=== PATIENT | female | born 1945 | race Caucasian/White ===

== ENCOUNTER → 2018-02-03 12:11 | Outpatient (CLI) | payer MEDICARE, SELFPAY ==
--- NOTE | 2018-02-03 | DI.MG.S_ITS ---
UNILATERAL RIGHT DIGITAL SCREENING MAMMOGRAM 3D/2D WITH CAD POST MASTECTOMY: 02/03/2018 CLINICAL: Routine screening. Family history of breast cancer. Personal history of breast cancer. Comparison is made to exams dated: 03/02/2014 mammogram, 05/03/2011 mammogram, and 04/19/2010 mammogram - [facility]. The tissue of the right breast is heterogeneously dense. This may lower the sensitivity of mammography. Current study was also evaluated with a Computer Aided Detection (CAD) system. No significant masses, calcifications, or other findings are seen in the breast. There has been no significant interval change. IMPRESSION: NEGATIVE There is no mammographic evidence of malignancy. A 1 year screening mammogram is recommended. This exam was interpreted at Station ID: [id number]. NOTE: For mammograms, a report in lay terms will be sent to the patient. Approximately 15% of breast malignancies will not be visualized mammographically. In the management of a palpable breast mass, a negative mammogram must not discourage biopsy of a clinically suspicious lesion. Electronically Signed By: Wicho moses/yolanda:02/03/2018 16:38:02 letter sent: Normal Exam ACR BI-RADS Category 1: Negative 3341F
== END ==
PROVIDERS: Family Provider Family Medicine; PCP Family Medicine; Visit Provider Family Medicine
DX: Z12.31 Encounter for screening mammogram for malignant neoplasm of breast (principal); Z80.3 Family history of malignant neoplasm of breast; Z85.3 Personal history of malignant neoplasm of breast; M85.88 Other specified disorders of bone density and structure, other site
CPT/HCPCS: 77063; 77065; 77080

== ENCOUNTER → 2019-07-23 08:54 | Outpatient (CLI) | payer MEDICARE, SELFPAY ==
--- NOTE | 2019-07-23 | DI.MG.S_ITS ---
UNILATERAL RIGHT DIGITAL SCREENING MAMMOGRAM 3D/2D WITH CAD POST MASTECTOMY: 07/23/2019 CLINICAL: Routine screening. Personal history of left breast cancer. Family history of breast cancer. Comparison is made to exams dated: 02/03/2018 mammogram, 03/02/2014 mammogram, 05/03/2011 mammogram, 04/04/2009 mammogram, 04/19/2010 mammogram, and 02/26/2008 mammogram - [facility]. The tissue of right breast is heterogeneously dense. This may lower the sensitivity of mammography. Current study was also evaluated with a Computer Aided Detection (CAD) system. No significant masses, calcifications, or other findings are seen in the breast. There has been no significant interval change. IMPRESSION: NEGATIVE There is no mammographic evidence of malignancy. A 1 year screening mammogram is recommended. This exam was interpreted at Station ID: [id number]. NOTE: For mammograms, a report in lay terms will be sent to the patient. Approximately 15% of breast malignancies will not be visualized mammographically. In the management of a palpable breast mass, a negative mammogram must not discourage biopsy of a clinically suspicious lesion. Electronically Signed By: Obi baker/yolanda:07/23/2019 16:34:42 letter sent: Normal Exam ACR BI-RADS Category 1: Negative 3341F
== END ==
PROVIDERS: Family Provider Family Medicine; PCP Family Medicine; Visit Provider Family Medicine
DX: Z12.31 Encounter for screening mammogram for malignant neoplasm of breast (principal); Z85.3 Personal history of malignant neoplasm of breast; Z80.3 Family history of malignant neoplasm of breast
CPT/HCPCS: 77063; 77067

== ENCOUNTER 2020-04-11 06:59 | Emergency (ER) | payer MEDICARE, SELFPAY ==
[2020-04-11 07:09] VITALS: BP 172/70; PULSE 76; RESP 18; TEMP 36.6; O2SAT 99; BMI 22.6
--- NOTE | 2020-04-11 07:18 | ED.LOWEXIN ---
HPI - Extremity Injury (Lower) General Chief Complaint: Extremity Injury, Lower Stated Complaint: left knee pain since last night Time Seen by Provider: 04/11/20 07:09 Source: family Mode of arrival: Wheelchair Limitations: no limitations History of Present Illness HPI Narrative: Patient is a 74-year-old female who presents with left knee injury. He actually was seen evaluated by orthopedics last week she does not have hardly any arthritis in her knee but continues to have knee pain. She was set up for physical therapy which she is supposed to start in 2 days. Yesterday she was walking and turned and felt something slip. She has had a difficult time walking and hurts to bend her knee. She denies hearing any pop. MD complaint: knee injury Onset (ago): day(s) Related Data Home Medications Medication Instructions Recorded Confirmed Fish Oil (#FISH OIL) 1 iu PO Q DAY #0 03/03/12 MULTIVITAMIN 1 cap PO Q DAY #0 03/03/12 Previous Rx's Medication Instructions Recorded valacyclovir 500 mg PO BID #6 tab 04/17/17 Allergies Allergy/AdvReac Type Severity Reaction Status Date / Time No Known Drug Allergies Allergy Verified 04/11/20 07:40 Review of Systems Review of Systems Narrative: GENERAL: Denies chills,fever HEENT: Denies throat pain RESPIRATORY: Denies dyspnea, cough, wheezing CARDIOVASCULAR: Denies chest pain, palpitations GASTROINTESTINAL: Denies nausea, vomiting MUSCULOSKELETAL: See HPI SKIN: No rash, no laceration, no pruritus NEUROLOGIC: Denies weakness, dizziness, headache, numbness 8 point review of systems is negative except for those stated above and HPI Patient History Medical History Patient denies medical problems (Acute) Surgical History History of carpal tunnel repair History of total mastectomy S/P total abdominal hysterectomy and bilateral salpingo-oophorectomy Family History Father Prostate cancer Mother Age: 98 Hypertension Social History Smoking Status: Never smoker Smoking Status: Never smoker alcohol intake frequency: 0-2 drinks per day Substance Use Type: does not use Exam Initial Vital Signs Initial Vital Signs: Vital Signs Temperature 97.8 F 04/11/20 07:09 Pulse Rate 76 04/11/20 07:09 Respiratory Rate 18 04/11/20 07:09 Blood Pressure 172/70 H 04/11/20 07:09 Pulse Oximetry 99 04/11/20 07:09 GENERAL: Well-appearing, well-nourished and in no acute distress. CARDIOVASCULAR: peripheral pulses in tact, cap refill <2 sec RESPIRATORY: No respiratory distress, speaks in full sentences without difficulty EXTREMITIES: Normal range of motion, no clubbing or edema. Neurovascularly intact Left lower extremity: Patient is able to flex the knee on her own and extend. Knee is stable minimal swelling or effusion no erythema. She is tender posteriorly. Distal pedal pulse intact NEUROLOGICAL: Cranial nerves II through XII grossly intact. Normal gait and speech. SKIN: Warm, dry, no petechiae, no rashes or lesions. Procedures Orthopedic Splinting/Casting Injury #1: Side: left Lower Extremity Injury Location: knee Lower Extremity Immobilizer: knee immobilizer Other Orthopedic Equipment: crutches Post splinting neuro exam: intact Post splinting vascular exam: intact Placed by: Nursing Course Orders Ordered: ED Orders 04/11/20 07:17 XR knee LT 3V Stat Discontinued Medications Ketorolac Tromethamine (Toradol) 30 mg IM NOW ONE Stop: 04/11/20 07:18 Last Admin: 04/11/20 07:35 Dose: 30 mg Documented by: ARVIN Vital Signs Vital signs: Vital Signs - 8 hr 04/11/20 07:09 Temperature 97.8 F Pulse Rate 76 Respiratory Rate 18 Blood Pressure 172/70 H Pulse Oximetry 99 MDM - Extremity Injury (Lower) Imaging Data Extremity x-ray #1: Radiologist's Impression: PROCEDURE: XR KNEE LT 3V INDICATIONS: injury TECHNIQUE: 3 views of the knee were acquired. COMPARISON: None. FINDINGS: Bones: No fractures or dislocations. No suspicious bony lesions. Soft tissues: No joint effusion. No suspicious soft tissue calcifications. IMPRESSION: No trauma found. Dictated by: Blas Downey M.D. on 04/11/2020 at 7:46 Discharge Plan Departure Patient Disposition: Home Clinical Impression: Left knee sprain Qualifiers: Encounter type: initial encounter Involved ligament of knee: other ligament Qualified Code(s): S83.8X2A - Sprain of other specified parts of left knee, initial encounter Discharge Date/Time: 04/11/20 08:13 Instructions: DI for Knee Sprain Activity Restrictions/Additional Instructions: *You have been diagnosed with left knee sprain *What to do: Recommend wearing the brace well active during the day. Use crutches as needed. Elevate and ice. You may are may not be able to participate in physical therapy depending on how you feel on Saturday. You may require an outpatient MRI which Dr. Vaz may decide is necessary, however does not indicated today. *Continue to take medications as directed Ibuprofen 600 mg every 6 hours if needed for ihkt-kd-veohsxhs pain *Follow up with your primary care provider in 2-3 days, *Return to ER if you should have increasing weakness, swelling, numbness, redness or fever or any new, worsening or concerning symptoms Prescriptions: No Action Fish Oil (#FISH OIL) 1 iu PO Q DAY Qty: 0 RF: 0 MULTIVITAMIN 1 cap PO Q DAY Qty: 0 RF: 0 valacyclovir 500 MG tablet 500 mg PO BID Qty: 6 RF: 0 Referrals: Miguel Ángel Vaz MD [Physician] - Angela Rasheed DO [Primary Care Provider] -
[2020-04-11] MEDS: KETOROLAC 60 MG/2 ML VIAL 30 MG IM (07:35)
== END 2020-04-11 08:13 | disposition home or self-care (01) ==
PROVIDERS: Emergency Provider Emergency Medicine; Family Provider Family Medicine; PCP Family Medicine
DX: S83.8X2A Sprain of other specified parts of left knee, initial encounter (principal); X50.1XXA Overexertion from prolonged static or awkward postures, initial encounter; Y93.01 Activity, walking, marching and hiking
CPT/HCPCS: 73562; 96372; 99283; J1885

== ENCOUNTER 2020-04-25 08:37 | Emergency (ER) | payer MEDICARE, SELFPAY ==
[2020-04-25 08:45] VITALS: BP 176/84; PULSE 88; RESP 16; TEMP 35.9; O2SAT 98; BMI 22.6
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
[2020-04-25 09:34] VITALS: BP 143/69; PULSE 73; RESP 12; O2SAT 99
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
== END 2020-04-25 09:54 | disposition home or self-care (01) ==
PROVIDERS: Emergency Provider Emergency Medicine; Family Provider Family Medicine; PCP Family Medicine
DX: T21.22XA Burn of second degree of abdominal wall, initial encounter (principal); X10.0XXA Contact with hot drinks, initial encounter
CPT/HCPCS: 99281

== ENCOUNTER → 2020-05-02 14:26 | Outpatient (CLI) | payer MEDICARE, SELFPAY | PROVIDERS: Family Provider Family Medicine; PCP Family Medicine; Referring Provider Emergency Medicine; Visit Provider Family Medicine | DX: T21.22XA Burn of second degree of abdominal wall, initial encounter (principal) | CPT/HCPCS: 16020; 99203; 99213 ==

== ENCOUNTER → 2020-05-09 09:37 | Outpatient (CLI) | payer MEDICARE, SELFPAY | PROVIDERS: Family Provider Family Medicine; PCP Family Medicine; Referring Provider Family Medicine; Visit Provider Family Medicine | DX: T21.22XA Burn of second degree of abdominal wall, initial encounter (principal) | CPT/HCPCS: 99212; 99213 ==

== ENCOUNTER → 2020-05-26 06:53 | Outpatient (CLI) | payer MEDICARE, SELFPAY ==
[2020-05-26 08:52] LABS: Add Manual Diff / Slide Review NO; Basophils Absolute Auto 100 /uL (0-100); Basophils Percent Auto 1.2 % (0-2); Eosinophils Absolute Auto 100 /uL (0-450); Eosinophils Percent Auto 2.4 % (2-4); Hemoglobin 13.3 g/dL (12.0-16.0); Lymphocytes Absolute Auto 1700 /uL (1100-4500); Lymphocytes Percent Auto 34.6 % (25-40); Mean Corpuscular HGB Conc 33.2 % (30-36); Mean Corpuscular Hemoglobin 29.8 PG (26-34); Mean Corpuscular Volume 89.8 fL (80-100); Monocytes Absolute Auto 500 /uL (0-900); Monocytes Percent Auto 11.3 % (3-14); Neutrophils Absolute Auto 2400 /uL (1500-7000); Neutrophils Percent Auto 50.5 % (50-75); Platelet Count 312 X10^3/uL (150-400); Red Blood Cell Count 4.46 X10^6/uL (4.0-5.2); Red Cell Distribution Width 14.1 % (11.6-14.8); White Blood Cell Count 4.8 X10^3/uL (4.5-11.0)
[2020-05-26 09:33] LABS: Alanine Aminotransferase 24 IU/L (<35); Albumin 4.4 g/dL (3.5-5.0); Albumin Globulin Ratio 1.6 (1.0-2.8); Alkaline Phosphatase 47 U/L (38-126); Aspartate Aminotransferase 33 IU/L (14-36); BUN Creatinine Ratio 24.2 (6-22); Bilirubin Total 0.5 mg/dL (0.2-1.3); Blood Urea Nitrogen 16 mg/dL (7-17); Calcium 9.1 mg/dL (8.4-10.2); Carbon Dioxide 31 mmol/L (22-32); Chloride 104 mmol/L (98-107); Cholesterol 238 mg/dL (140-199); Estimated Glomerular Filt Rate > 60.0 mL/min (>60); Globulin 2.8 g/dL (1.7-4.1); Glucose 97 mg/dL (80-110); HDL Cholesterol 63 mg/dL (40-60); HEMOLYSIS < 15 (0-50); LDL Cholesterol Calculated 158 mg/dL (<100); Sodium 140 mmol/L (137-145); Total Protein 7.2 g/dL (6.3-8.2); Triglycerides 83 mg/dL (35-150)
== END ==
PROVIDERS: Family Provider Family Medicine; PCP Family Medicine; Referring Provider Family Medicine; Visit Provider Family Medicine
DX: Z00.00 Encounter for general adult medical examination without abnormal findings (principal)
CPT/HCPCS: 36415; 80053; 80061; 85025

== ENCOUNTER → 2020-05-30 11:56 | Outpatient (CLI) | payer MEDICARE, SELFPAY ==
--- NOTE | 2020-05-30 | DI.MRI.S_ITS ---
PROCEDURE: MR KNEE LT WO CON INDICATIONS: TECHNIQUE: Noncontrast sagittal PD fast spin echo and T2 fast spin echo with fat saturation, sagittal 3-D FLASH with fat saturation; coronal T1 spin echo and PD fast spin echo with fat saturation, and axial PD fast spin echo with fat saturation through the knee. COMPARISON: None. FINDINGS: Image quality: Excellent. Menisci: Medial meniscal tear is present with vertically oriented abnormal signal extending to the superior and inferior articular surface of the posterior horn. There is also marked truncation of the free margin of the body and partial extrusion. Lateral meniscus intact. Cruciate ligaments: Anterior cruciate ligament appears intact. Posterior cruciate ligament appears intact. Medial structures: The medial collateral ligament appears intact. Semimembranosus tendon appears intact. Visualized portions of the pes anserinus tendons appear normal. No abnormal bursal fluid. Lateral structures: The lateral collateral ligament intact. Biceps femoris tendon appears intact. Popliteus tendon grossly unremarkable. Iliotibial band appears intact. Anterior structures: Quadriceps tendon intact. Medial and lateral patellofemoral ligaments intact. There is mild patellar tendinopathy. Prepatellar and superficial infrapatellar subcutaneous edema/fluid. Bones and cartilage: No focal marrow contusion or discrete low signal fracture line. Within the medial compartment, diffuse partial-thickness loss of the femoral and tibial articular cartilage. Within the lateral compartment, mild surface fraying of the central weight-bearing tibial cartilage. No femoral focal cartilage defect. Within the patellofemoral compartment, diffuse surface fraying of the patellar and femoral trochlear cartilage. Joint space: Trace joint effusion Silva's cyst is noted measuring 4 cm in the cephalocaudal dimension. No specific evidence of intra-articular loose body. IMPRESSION: Medial meniscal tear as detailed above with partial extrusion. Mild patellar tendinopathy Tricompartmental joint degeneration. Silva's cyst Trace joint effusion Dictated by: Rowdy Munroe M.D. on 05/30/2020 at 13:48 Approved by: Rowdy Munroe M.D. on 05/30/2020 at 13:54
== END ==
PROVIDERS: Family Provider Family Medicine; PCP Family Medicine; Referring Provider Orthopaedic Surgery; Visit Provider Orthopaedic Surgery
DX: S83.242A Other tear of medial meniscus, current injury, left knee, initial encounter (principal); M17.12 Unilateral primary osteoarthritis, left knee; M71.21 Synovial cyst of popliteal space [Baker], right knee; X58.XXXA Exposure to other specified factors, initial encounter
CPT/HCPCS: 73721

== ENCOUNTER → 2020-11-09 10:04 | Outpatient (CLI) | payer MEDICARE, SELFPAY ==
--- NOTE | 2020-11-09 10:08 | DI.RAD.S_ITS ---
PROCEDURE: XR DEXA AXIAL SKELETON INDICATIONS: post menopausal/screening osteoporosis COMPARISON: [facility], CR, XR DEXA AXIAL SKELETON, 02/03/2018, 13:19. FINDINGS: This blank DEXA report has been sent in error by the PACS system. The correct and complete report will be forthcoming in 1-2 days. Thank you for your patience and understanding. Dictated by: Genesis Gates MD, PhD on 11/09/2020 at 16:21 Approved by: Genesis Gates MD, PhD on 11/09/2020 at 16:21
== END ==
PROVIDERS: Family Provider Family Medicine; PCP Family Medicine; Referring Provider Family Medicine; Visit Provider Family Medicine
DX: M85.88 Other specified disorders of bone density and structure, other site (principal); Z78.0 Asymptomatic menopausal state
CPT/HCPCS: 77080

== ENCOUNTER → 2021-02-22 10:03 | Outpatient (CLI) | payer MEDICARE, SELFPAY ==
--- NOTE | 2021-02-22 10:05 | DI.MG.S_ITS ---
UNILATERAL RIGHT DIGITAL SCREENING MAMMOGRAM 3D/2D WITH CAD: 02/22/2021 CLINICAL: Routine screening. Breast cancer. Comparison is made to exams dated: 07/23/2019 mammogram, 02/03/2018 mammogram, and 03/02/2014 mammogram - [facility]. The tissue of right breast is heterogeneously dense. This may lower the sensitivity of mammography. Current study was also evaluated with a Computer Aided Detection (CAD) system. There are benign calcifications in the right breast. No significant masses, calcifications, or other findings are seen in the breast. There has been no significant interval change. IMPRESSION: BENIGN There is no mammographic evidence of malignancy. A 1 year screening mammogram is recommended. This exam was interpreted at Station ID: [id number]. NOTE: For mammograms, a report in lay terms will be sent to the patient. Approximately 15% of breast malignancies will not be visualized mammographically. In the management of a palpable breast mass, a negative mammogram must not discourage biopsy of a clinically suspicious lesion. Electronically Signed By: Shabbir dennis/yolanda:02/22/2021 10:29:35 letter sent: Normal Exam ACR BI-RADS Category 2: Benign Finding(s) 3342F
== END ==
PROVIDERS: Family Provider Family Medicine; PCP Family Medicine; Referring Provider Family Medicine; Visit Provider Family Medicine
DX: Z12.31 Encounter for screening mammogram for malignant neoplasm of breast (principal); Z85.3 Personal history of malignant neoplasm of breast
CPT/HCPCS: 77063; 77067

== ENCOUNTER → 2022-01-10 14:11 | Outpatient (CLI) | payer MEDICARE, SELFPAY ==
[2022-01-10 14:35] LABS: COVID19 -Nasal RAPID POSITIVE (Negative)
== END ==
PROVIDERS: Family Provider Family Medicine; PCP Family Medicine; Visit Provider Surgery
DX: U07.1 COVID-19 (principal)
CPT/HCPCS: 87635; C9803

== ENCOUNTER → 2022-01-11 10:42 | Outpatient (CLI) | payer MEDICARE, SELFPAY ==
[2022-01-11 11:31] LABS: COVID19 -Nasal RAPID Negative (Negative)
== END ==
PROVIDERS: Family Provider Family Medicine; PCP Family Medicine; Visit Provider Surgery
DX: Z01.812 Encounter for preprocedural laboratory examination (principal); Z20.822 Contact with and (suspected) exposure to COVID-19
CPT/HCPCS: 87635; C9803

== ENCOUNTER → 2022-01-16 11:10 | Outpatient (CLI) | payer MEDICARE, SELFPAY ==
[2022-01-16 12:47] LABS: COVID19 -Nasal RAPID Negative (Negative)
== END ==
PROVIDERS: Family Provider Family Medicine; PCP Family Medicine; Visit Provider Surgery
DX: Z20.822 Contact with and (suspected) exposure to COVID-19 (principal); Z01.812 Encounter for preprocedural laboratory examination
CPT/HCPCS: 87635; C9803

== ENCOUNTER 2022-01-17 11:13 | Day surgery (SDC) | payer MEDICARE, SELFPAY ==
--- NOTE | 2022-01-17 | PATH_ITS ---
[facility] Accession Number: [id number] No. of containers..01 Tissue . 01 Material submitted: . sigmoid colon - SIGMOID COLON POLYP . 01 Diagnosis: Sigmoid Colon, Polyp, Biopsy: Tubular adenoma. MRV 01/19/2022 1354 Local . 01 Electronically signed: . Iliana Haley MD, Pathologist NPI- [id number] . 01 Gross description: . SIGMOID COLON POLYP: Received in formalin is 1 fragment(s) of polk, soft tissue measuring 0.6 x 0.5 x 0.4 cm submitted entirely in 1 cassette(s) /CHLOÉ 01/18/2022 2229 Local . 01 Pathologist provided ICD-10: D12.5 . 01 CPT . 166550 Specimen Comment: A courtesy copy of this report has been sent to [phone] Performed at: 01 [facility] [address] [place] [address], [place], [place] [id number] MD Shabbir Jacobs MD Phone: [phone]
[2022-01-17] MEDS: LACTATED RINGERS 1,000 ML 100 ML IV (11:57)
[2022-01-17 12:00] VITALS: BP 115/73; PULSE 78; RESP 16; TEMP 36.3; O2SAT 100; BMI 21.7
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
--- NOTE | 2022-01-17 13:30 | PM.OP.COLON ---
Operative Date/Time/Diagnoses Date of procedure: 01/17/22 Time of procedure: 13:30 Pre-op diagnosis: Colon cancer screening Post-op diagnosis: same Procedure & Clinicians Study performed: Colonoscopy Same procedure as scheduled: Yes Surgeon: Terrence Jiménez Procedure Notes Procedure in detail: Surgeon: Terrence Jiménez MD Procedure: The patient was brought to the endoscopy suite, placed in left lateral decubitus position. The patient was connected to monitoring devices. A time-out was performed. Sedation was administered. Once the patient was adequately sedated, a digital rectal exam was performed and was normal. The scope was then inserted and advanced to the cecum where the appendiceal orifice was identified and photographed. The terminal ileum was intubated and no abnormalities were seen. The scope was then slowly withdrawn over greater than 6 minutes. The mucosa was thoroughly inspected. There was 1 polyp in the sigmoid colon of about 6 mm removed with cold snare. There were a few scattered sigmoid diverticula. The scope was retroflexed in the rectum. There were some mild internal hemorrhoids noted but no other abnormalities. The scope was straightened and removed. The patient was awakened and brought to recovery. Versed: 5 mg Fentanyl: 150 mcg EBL: 5 mL Findings: Scattered sigmoid diverticula and 1 6 mm sigmoid polyp Scope withdrawal time: 9 Sedation minutes: 21 Post-procedure Recommendations: Will call with biopsy results Disposition: PACU
[2022-01-17] MEDS: fentaNYL 250 MCG/5 ML INJ IV (13:31)
[2022-01-17] MEDS: MIDAZOLAM 5 MG/5 ML VIAL IV (13:32)
[2022-01-17 13:35] VITALS: BP 124/78; PULSE 67; RESP 12; TEMP 36.6; O2SAT 98
[2022-01-17 13:40] VITALS: BP 123/78; PULSE 68; RESP 18; TEMP 36.6; O2SAT 98
[2022-01-17 13:45] VITALS: BP 98/57; PULSE 67; RESP 16; O2SAT 98
[2022-01-17 14:01] VITALS: BP 118/76; PULSE 64; RESP 18; TEMP 36.3; O2SAT 98
== END 2022-01-17 14:10 | disposition home or self-care (01) ==
PROVIDERS: Family Provider Family Medicine; PCP Family Medicine; Referring Provider Surgery; Visit Provider Surgery
PROC: 0DJD8ZZ Inspection of Lower Intestinal Tract, Via Natural or Artificial Opening Endoscopic (ICD-10-PCS; CPT 45378; principal; 2022-01-17 13:00)
DX: Z12.11 Encounter for screening for malignant neoplasm of colon (principal); K57.30 Diverticulosis of large intestine without perforation or abscess without bleeding; K64.8 Other hemorrhoids; D12.5 Benign neoplasm of sigmoid colon
CPT/HCPCS: 45385; 99152; J2250; J3010

== ENCOUNTER → 2022-06-19 07:08 | Outpatient (CLI) | payer MEDICARE, SELFPAY ==
[2022-06-19 08:10] LABS: BUN Creatinine Ratio 22.9 (6-22); Blood Urea Nitrogen 16 mg/dL (7-17); Calcium 9.1 mg/dL (8.4-10.2); Carbon Dioxide 28 mmol/L (22-32); Chloride 103 mmol/L (98-107); Cholesterol 201 mg/dL (140-199); Estimated Glomerular Filt Rate > 60 mL/min (>60); Glucose 96 mg/dL (80-110); HDL Cholesterol 72 mg/dL (40-60); HEMOLYSIS < 15 (0-50); LDL Cholesterol Calculated 117 mg/dL (<100); Potassium 4.5 mmol/L (3.4-5.1); Sodium 137 mmol/L (137-145); Triglycerides 61 mg/dL (35-150)
[2022-06-19 08:29] LABS: Free T3, Triiodothyronine Free 3.42 pg/mL (2.77-5.27)
[2022-06-19 08:42] LABS: TSH w/ Reflex to FT4 2.15 uIU/mL (0.47-4.68)
== END ==
PROVIDERS: Family Provider Family Medicine; PCP Family Medicine; Referring Provider Family Medicine; Visit Provider Family Medicine
DX: E78.5 Hyperlipidemia, unspecified (principal); E03.9 Hypothyroidism, unspecified
CPT/HCPCS: 36415; 80048; 80061; 84439; 84443; 84481

== ENCOUNTER → 2023-04-05 08:48 | Outpatient (CLI) | payer MEDICARE, SELFPAY ==
[2023-04-05 10:25] LABS: Influenza A - CEPHEID Flu A NEGATIVE (NEGATIVE); Influenza B - CEPHEID Flu B NEGATIVE (NEGATIVE); Respiratory Syncytial Virus Negative (Negative)
[2023-04-05 10:57] LABS: COVID-19 CEPHEID 4-PLEX PCR POSITIVE (Negative)
== END ==
PROVIDERS: Family Provider Family Medicine; PCP Family Medicine; Visit Provider Physician Assistant
DX: J02.9 Acute pharyngitis, unspecified (principal); R05.9 Cough, unspecified
CPT/HCPCS: 0241U

== ENCOUNTER → 2023-04-06 09:33 | Outpatient (CLI) | payer MEDICARE, SELFPAY ==
[2023-04-06 10:03] LABS: BUN Creatinine Ratio 24.1 (6-22); Blood Urea Nitrogen 14 mg/dL (7-17); Carbon Dioxide 26 mmol/L (22-32); Chloride 103 mmol/L (98-107); Estimated Glomerular Filt Rate > 60 mL/min (>60); Glucose 96 mg/dL (80-110); HEMOLYSIS < 15 (0-50); Potassium 4.4 mmol/L (3.4-5.1); Sodium 140 mmol/L (137-145)
== END ==
PROVIDERS: Family Provider Family Medicine; PCP Family Medicine; Visit Provider Physician Assistant
DX: U07.1 COVID-19 (principal)
CPT/HCPCS: 80048

== ENCOUNTER → 2023-09-19 09:06 | Outpatient (CLI) | payer MEDICARE, SELFPAY ==
[2023-09-19 10:28] LABS: Add Manual Diff / Slide Review NO; Basophils Absolute Auto 0 /uL (0-100); Basophils Percent Auto 0.6 % (0-2); Eosinophils Absolute Auto 100 /uL (0-450); Eosinophils Percent Auto 1.1 % (2-4); Hematocrit 39.5 % (36-46); Hemoglobin 13.2 g/dL (12.0-16.0); Lymphocytes Absolute Auto 1400 /uL (1100-4500); Lymphocytes Percent Auto 23.9 % (25-40); Mean Corpuscular HGB Conc 33.4 % (30-36); Mean Corpuscular Hemoglobin 28.9 PG (26-34); Mean Corpuscular Volume 86.4 fL (80-100); Monocytes Absolute Auto 500 /uL (0-900); Monocytes Percent Auto 9.1 % (3-14); Neutrophils Absolute Auto 3800 /uL (1500-7000); Neutrophils Percent Auto 65.3 % (50-75); Platelet Count 323 X10^3/uL (150-400); Red Blood Cell Count 4.57 X10^6/uL (4.0-5.2); Red Cell Distribution Width 14.1 % (11.6-14.8); White Blood Cell Count 5.9 X10^3/uL (4.5-11.0)
[2023-09-19 11:36] LABS: Alanine Aminotransferase 16 IU/L (<35); Albumin 4.2 g/dL (3.5-5.0); Albumin Globulin Ratio 1.5 (1.0-2.8); Alkaline Phosphatase 49 U/L (38-126); Aspartate Aminotransferase 28 IU/L (14-36); BUN Creatinine Ratio 24.6 (6-22); Bilirubin Total 0.7 mg/dL (0.2-1.3); Blood Urea Nitrogen 16 mg/dL (7-17); Calcium 9.6 mg/dL (8.4-10.2); Carbon Dioxide 27 mmol/L (22-32); Chloride 103 mmol/L (98-107); Estimated Glomerular Filt Rate > 60 mL/min (>60); Globulin 2.8 g/dL (1.7-4.1); Glucose 95 mg/dL (80-110); HEMOLYSIS < 15 (0-50); Potassium 4.5 mmol/L (3.4-5.1); Sodium 139 mmol/L (137-145)
[2023-09-19 11:58] LABS: TSH w/ Reflex to FT4 1.58 uIU/mL (0.47-4.68)
[2023-09-19 12:17] LABS: Vitamin B12 662 pg/mL (239-931)
== END ==
PROVIDERS: Family Provider Family Medicine; PCP Family Medicine; Referring Provider Family Medicine; Visit Provider Family Medicine
DX: R41.3 Other amnesia (principal)
CPT/HCPCS: 36415; 80053; 82607; 84443; 85025

== ENCOUNTER → 2023-09-23 06:41 | Outpatient (CLI) | payer MEDICARE, SELFPAY ==
--- NOTE | 2023-09-23 07:24 | DI.MRI.S_ITS ---
PROCEDURE: MR HEAD/BRAIN WO CON INDICATIONS: short term memory loss TECHNIQUE: Non-contrast axial T1 spin echo, axial T2 fast spin echo, sagittal and axial FLAIR, coronal T2 fast spin echo, axial gradient echo, axial diffusion and ADC through the brain. COMPARISON: None. FINDINGS: Image quality: Excellent. CSF spaces: Ventricles appear symmetric in size and shape. Basal cisterns are patent. No extra-axial fluid collections. Brain: No intracranial bleeds or mass effects. There is mild cerebral volume loss for age. There are minimal periventricular and deep white matter chronic small vessel ischemic changes. Brainstem appears normal. Diffusion-weighted images show no acute infarct. No chronic ischemic insults. Normal intravascular flow voids are present. Skull and face: Calvarial bone marrow is normal in signal. Orbits are normal. Sinuses: Sinuses and mastoids are clear. IMPRESSION: No acute intracranial disease process. No acute or chronic infarcts. No abnormal intracranial mass. Dictated by: Genesis Gates MD, PhD on 09/23/2023 at 9:46 Approved by: Genesis Gates MD, PhD on 09/23/2023 at 9:48
== END ==
LOC: MRI 06:41
PROVIDERS: Family Provider Family Medicine; PCP Family Medicine; Referring Provider Family Medicine; Visit Provider Family Medicine
DX: R41.3 Other amnesia (principal)
CPT/HCPCS: 70551

== ENCOUNTER 2023-10-03 11:29 | Day surgery (SDC) | payer MEDICARE, SELFPAY ==
[2023-10-02 15:25] VITALS: BMI 23.4
[2023-10-03 11:55] VITALS: BMI 23.4
[2023-10-03 12:00] VITALS: BP 135/74; PULSE 70; RESP 16; TEMP 36.3; O2SAT 98
[2023-10-03] MEDS: LACTATED RINGERS 1,000 ML 42 ML IV (12:08)
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
[2023-10-03] MEDS: CEFAZOLIN 2 GM/100 ML PREMIX 100 ML IV (12:33)
--- NOTE | 2023-10-03 13:00 | SUR.OPER ---
Supine on padded OR bed, head on pillow, left arm secured on padded arm board at <90 degrees abduction, right arm draped free on black hand table legs uncrossed, safety belt at thigh, tape over blanket over lower legs.
[2023-10-03] MEDS: BUPIVACAINE 0.5% (PF) 30 ML, EPINEPHrine 0.15 MG INJ (13:12)
--- NOTE | 2023-10-03 13:48 | P.OP_ITS ---
Operative Date/Time/Diagnoses Date of procedure: 10/03/23 Time of procedure: 12:45 Pre-op diagnosis: Right middle finger PIP joint arthritis Post-op diagnosis: same Procedure & Clinicians Procedure: Right middle finger PIP joint replacement Same procedure as scheduled: Yes Indications: End-stage arthritis right middle finger Surgeon: Olman Ortiz Click Yes if Unassisted: Yes Anesthesia Type: General Operative Notes Findings: Significant end-stage arthritis to the PIP joint with an angular deformity. Closure Type: primary Prosthetic devices, grafts, tissues, transplants, or devices: Silastic PIP joint replacement Applied: implant(s) (Silastic PIP joint replacement) Estimated Blood Loss (mL): 0 Tourniquet time (min): 46 Procedure in detail: On date of service patient was met in the holding area where his operative site was signed witnessed by the OR staff. Surgery was once again discussed with the patient and any remaining questions or concerns he had were answered fully. Patient was taken back to the operating theater placed on the operating table in a supine position. Great care was taken to ensure that all bony prominences were appropriately padded a well-padded tourniquet was placed up along the upper extremity. Time-out was performed verifying patient's name, procedure, and operative site. Esmarch was used to exsanguinate the limb and the tourniquet was turned up to 2 50 mmHg. A dorsal incision was made over the PIP joint using a 15 blade. Fifteen blade was used incise the skin and fascial tissue. Electrocautery was used to achieve hemostasis. Retractors were placed and a deep knife was then used to make an chevron type incision of the extensor tendon protecting the central slip. Sharp dissection was continued in till the joint was exposed. As mentioned above there was full-thickness cartilage loss. Guidewire was placed into the proximal phalanx. Alignment guide was placed and verified its position using AP and lateral views with the C-arm. Once we were satisfied with our alignment cutting guide was placed the saw was then used to remove the articular surface of the proximal phalanx. The bone was then broached and a size 2 provided the best fit. While broaching the alignment guide was used to verify its overall positioning on both AP and lateral views. Similar procedure was done to the middle phalanx. Guidewire was placed into the proximal phalanx followed by the alignment guide. Once we were satisfied with our alignment, a bur was then used to remove the articular surface of the middle phalanx. Middle phalanx was then reamed and broached and once again a size 2 was the appropriate fit. Trials were placed and the finger was taken through range of motion. We were able to fully flex and extend with a finger with no sign of any gapping or stiffness. The wound was then copiously irrigated and then final implants were impacted into place. Wound was copiously irrigated and then closed in a layered fashion. The chevron type incision of the extensor tendon was repaired. Central slip was never disrupted. Capsule and surrounding tissue was closed with Ethibond. This provided a stable closure of the joint capsule and the finger was stable to varus and valgus stress as well as dorsal and volar stress. The radial collateral ligament was tightened to help correct the angular deformity. No sign of any instability at the PIP joint either in full extension or full flexion. Rest of the wound was closed in layered fashion. Finger was then cleaned, dried, and dressed patient was placed into a splint and taken to the PACU in stable condition. Post-operative Condition: stable Disposition: PACU Plan for aftercare: Patient will follow our postoperative protocol for a PIP joint replacement.
[2023-10-03 13:50] VITALS: BP 131/66; PULSE 72; RESP 16; TEMP 36.1; O2SAT 98
[2023-10-03 14:00] VITALS: BP 128/65; PULSE 70; RESP 16; O2SAT 94
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
[2023-10-03 14:07] VITALS: BP 134/68; PULSE 74; RESP 16; TEMP 36.2; O2SAT 98
== END 2023-10-03 14:38 | disposition home or self-care (01) ==
PROVIDERS: Family Provider Family Medicine; PCP Family Medicine; Referring Provider Orthopaedic Surgery; Visit Provider Orthopaedic Surgery
PROC: (CPT 26535; principal; 2023-10-03 12:00)
DX: M19.041 Primary osteoarthritis, right hand (principal)
CPT/HCPCS: 26536; C1776; J0171; J0690; J2405; J2704; J3010

== ENCOUNTER → 2024-08-17 07:36 | Outpatient (CLI) | payer MEDICARE, SELFPAY ==
[2024-08-17 08:05] LABS: Add Manual Diff / Slide Review NO; Basophils Absolute Auto 100 /uL (0-100); Eosinophils Absolute Auto 100 /uL (0-450); Eosinophils Percent Auto 2.3 % (2-4); Hematocrit 40.2 % (36-46); Hemoglobin 13.3 g/dL (12.0-16.0); Lymphocytes Absolute Auto 1700 /uL (1100-4500); Lymphocytes Percent Auto 32.1 % (25-40); Mean Corpuscular Hemoglobin 28.7 PG (26-34); Mean Corpuscular Volume 86.9 fL (80-100); Monocytes Absolute Auto 600 /uL (0-900); Neutrophils Absolute Auto 2800 /uL (1500-7000); Neutrophils Percent Auto 53.6 % (50-75); Platelet Count 350 X10^3/uL (150-400); Red Blood Cell Count 4.62 X10^6/uL (4.0-5.2); Red Cell Distribution Width 13.6 % (11.6-14.8); White Blood Cell Count 5.3 X10^3/uL (4.5-11.0)
[2024-08-17 08:14] LABS: Alanine Aminotransferase 20 IU/L (<35); Albumin 4.3 g/dL (3.5-5.0); Alkaline Phosphatase 45 U/L (38-126); Aspartate Aminotransferase 31 IU/L (14-36); BUN Creatinine Ratio 22.7 (6-22); Bilirubin Total 0.8 mg/dL (0.2-1.3); Blood Urea Nitrogen 15 mg/dL (7-17); Calcium 9.2 mg/dL (8.4-10.2); Carbon Dioxide 29 mmol/L (22-32); Chloride 106 mmol/L (98-107); Cholesterol 256 mg/dL (140-199); Estimated Glomerular Filt Rate > 60 mL/min (>60); Globulin 2.2 g/dL (1.7-4.1); Glucose 93 mg/dL (80-110); HDL Cholesterol 68 mg/dL (40-60); HEMOLYSIS < 15 (0-50); LDL Cholesterol Calculated 174 mg/dL (<100); Potassium 4.1 mmol/L (3.4-5.1); Sodium 139 mmol/L (137-145); Total Protein 6.5 g/dL (6.3-8.2); Triglycerides 70 mg/dL (35-150)
[2024-08-17 10:08] LABS: Creatinine Urine Random 127.03 mg/dL
[2024-08-17 10:16] LABS: Microalbumin Urine Random 0.8 mg/dL (0-1.6)
== END ==
PROVIDERS: Family Provider Family Medicine; PCP Family Medicine; Referring Provider Family Medicine; Visit Provider Family Medicine
DX: R41.3 Other amnesia (principal); E78.5 Hyperlipidemia, unspecified; M85.80 Other specified disorders of bone density and structure, unspecified site; Z78.0 Asymptomatic menopausal state
CPT/HCPCS: 36415; 80053; 80061; 82043; 82570; 85025